=== PATIENT | female | born 1955 | race Caucasian/White ===

== ENCOUNTER 2021-03-19 08:29 | Inpatient (IN) | payer MEDICARE, OTHER ==
[2021-03-19 09:26] LABS: #Basophils 0.1 10x3/uL (0.0-0.2); #Eosinphils 0.3 10x3/uL (0.0-0.5); #Monocytes 0.6 10x3/uL (0.0-1.1); #Neutrophils 4.9 10x3/uL (1.5-8.4); %Basophils 1.6 % (0.0-2.0); %Eosinophils 3.7 % (0.0-6.0); %Lymphocytes 11.9 % (18.0-47.0); %Monocytes 8.9 % (0.0-10.0); %Neutrophils 73.2 % (40.0-75.0); Hemoglobin 7.4 g/dL (12.0-15.5); Mean Corpuscular HGB CONC 27.9 g/dL (32.0-36.0); Mean Corpuscular Volume 68.1 fl (81.6-98.3); Mean Platelet Volume 8.5 fl (7.4-10.4); Platelet Count 383 10x3/uL (150-450); RBC Distribution Width 17.1 % (11.5-14.5); Red Blood Cell (RBC) Count 3.89 10x6/uL (3.90-5.03); White Blood Cell (WBC) Count 6.7 10x3/uL (3.5-10.5)
[2021-03-19 09:35] LABS: ALT (SGPT) 14 U/L (8-55); AST (SGOT) 10 U/L (5-34); Albumin 3.7 g/dL (3.4-4.8); Alkaline Phosphatase 69 U/L (40-110); Anion Gap 12 mmol/L (10-20); BUN (Urea Nitrogen) 17 mg/dL (9.8-20.1); Bilirubin, Total 0.6 mg/dL (0.2-1.2); Calc. Creatinine Clearance 0 mL/min (70-130); Calcium 8.5 mg/dL (7.8-10.44); Carbon Dioxide 24 mmol/L (23-31); Chloride 103 mmol/L (98-107); Globulin 2.7 g/dL (2.4-3.5); Glucose 155 mg/dL (80-115); Iron 13 ug/dL (50-170); Iron Binding Capacity, Total 383 mcg/dL (265-497); Potassium 3.4 mmol/L (3.5-5.1); Protein, Total 6.4 g/dL (5.8-8.1); Sodium 136 mmol/L (136-145)
[2021-03-19 09:59] LABS: Elliptocytes SLIGHT = 2-5 cells (100X) (0-1/hpf); Hypochromia SLIGHT = 6-15 cells (100X) (0-5/hpf); Microcytosis SLIGHT = 6-15 cells (100X) (0-5/hpf)
[2021-03-19 10:01] LABS: Tear Drops SLIGHT = 2-5 cells (100X) (0-1/hpf)
[2021-03-19] MEDS ORDERED: Pantoprazole 40 MG VIAL ONE (10:15)
[2021-03-19] MEDS ORDERED: Dextrose 5% in Water 1,000 ML IV PRN (10:31)
[2021-03-19] MEDS ORDERED: HumaLOG 300 UNITS/3 ML VIAL SC PRN ×2 (10:31)
[2021-03-19] MEDS ORDERED: Acetaminophen 325 MG TAB PO PRN (10:31)
[2021-03-19] MEDS ORDERED: Dextrose 50% Abboject 50 ML SYRINGE SLOW IVP PRN (10:31)
[2021-03-19] MEDS ORDERED: Acetaminophen 650 MG Suppository PR PRN (10:31)
[2021-03-19 13:43] VITALS: BMI 31.5
[2021-03-19] MEDS ORDERED: GoLYTELY 4,000 ml Bottle PO SCH (16:00)
[2021-03-19] MEDS ORDERED: Pantoprazole 80 MG, Admixture Fee 1 EACH in Sodium Chloride 0.9% 100 ML IVPB SCH (16:00)
[2021-03-19 18:18] LABS: Hemoglobin 8.2 g/dL (12.0-15.5)
[2021-03-19] MEDS ORDERED: Ondansetron PF 4 MG/2 ML Vial IVP PRN (20:00)
[2021-03-19] MEDS: hydrOXYzine 25 MG TAB PO SCH (20:16)
[2021-03-19] MEDS: Pantoprazole 40 MG VIAL IVP SCH (20:16)
[2021-03-19] MEDS: busPIRone HCl 15 MG TAB PO SCH (20:16)
[2021-03-20 04:50] LABS: #Basophils 0.1 10x3/uL (0.0-0.2); #Eosinphils 0.3 10x3/uL (0.0-0.5); #Monocytes 0.7 10x3/uL (0.0-1.1); #Neutrophils 4.2 10x3/uL (1.5-8.4); %Basophils 1.4 % (0.0-2.0); %Eosinophils 3.9 % (0.0-6.0); %Lymphocytes 20.3 % (18.0-47.0); %Monocytes 10.1 % (0.0-10.0); %Neutrophils 63.7 % (40.0-75.0); Hemoglobin 8.2 g/dL (12.0-15.5); Mean Corpuscular HGB CONC 28.4 g/dL (32.0-36.0); Mean Corpuscular Hemoglobin 20.1 pg (27.0-33.0); Mean Platelet Volume 8.3 fl (7.4-10.4); Platelet Count 358 10x3/uL (150-450); RBC Distribution Width 17.6 % (11.5-14.5); Red Blood Cell (RBC) Count 4.07 10x6/uL (3.90-5.03); White Blood Cell (WBC) Count 6.7 10x3/uL (3.5-10.5)
[2021-03-20 04:53] LABS: Anion Gap 13 mmol/L (10-20); BUN (Urea Nitrogen) 11 mg/dL (9.8-20.1); Calc. Creatinine Clearance 103 mL/min (70-130); Calcium 8.3 mg/dL (7.8-10.44); Carbon Dioxide 24 mmol/L (23-31); Chloride 106 mmol/L (98-107); Glucose 106 mg/dL (80-115); Potassium 3.3 mmol/L (3.5-5.1); Sodium 140 mmol/L (136-145)
[2021-03-20 05:07] LABS: Hypochromia SLIGHT = 6-15 cells (100X) (0-5/hpf)
[2021-03-20 05:08] LABS: Anisocytosis SLIGHT = 6-15 cells (100X) (0-5/hpf); Platelet Morphology Comment Appears Adequate
[2021-03-20 07:04] LABS: SARS-CoV-2 NAA Rapid Test Not Detected (NotDetected)
[2021-03-20] MEDS ORDERED: PROPOFOL 20 ML ONE ×3 (07:25→07:55)
[2021-03-20] MEDS ORDERED: Lidocaine 2% MPF 10 ML AMP (For Epidural Use) ONE (07:26)
[2021-03-20] MEDS ORDERED: PHENYLEPHRINE-NS 100 MCG/ML 10 ML SYRINGE ONE (08:11)
[2021-03-20] MEDS ORDERED: Atorvastatin Calcium 20 MG TAB PO SCH (09:00)
[2021-03-20] MEDS ORDERED: Hydrochlorothiazide 25 MG TAB PO SCH (09:00)
[2021-03-20] MEDS ORDERED: DULoxetine 30 MG CAP PO SCH (09:00)
[2021-03-20] MEDS ORDERED: Aripiprazole 10 MG TAB PO SCH (09:00)
[2021-03-20] MEDS ORDERED: Lisinopril 10 MG TAB PO SCH (09:00)
[2021-03-20] MEDS: Pantoprazole 40 MG VIAL IVP SCH (09:24)
[2021-03-20] MEDS: busPIRone HCl 15 MG TAB PO SCH (09:25)
[2021-03-20] MEDS: hydrOXYzine 25 MG TAB PO SCH (09:25)
[2021-03-20 13:30] LABS: SARS-CoV-2 PCR by NAA Not Detected (NotDetected)
[2021-03-20] MEDS ORDERED: Potassium Chloride 20 MEQ TAB PO SCH (15:00)
[2021-03-20 16:40] VITALS: BP 130/58; TEMP 98.4
== END 2021-03-20 17:53 | disposition home or self-care (01) | DRG 376 ==
LOC: CSHERS 08:29 → CSHTELE 11:31
PROVIDERS: ADMIT Internal Medicine; ATTEND Physician Assistant
PROC: 30233N1 Transfusion of Nonautologous Red Blood Cells into Peripheral Vein, Percutaneous Approach (ICD-10-PCS; principal; 2021-03-19)
PROC: 0DB98ZX Excision of Duodenum, Via Natural or Artificial Opening Endoscopic, Diagnostic (ICD-10-PCS; 2021-03-20)
PROC: 0DBM8ZX Excision of Descending Colon, Via Natural or Artificial Opening Endoscopic, Diagnostic (ICD-10-PCS; 2021-03-20)
PROC: 0DBL8ZX Excision of Transverse Colon, Via Natural or Artificial Opening Endoscopic, Diagnostic (ICD-10-PCS; 2021-03-20)
DX: C18.9 Malignant neoplasm of colon, unspecified (principal); Z20.822 Contact with and (suspected) exposure to COVID-19; D50.9 Iron deficiency anemia, unspecified; E11.9 Type 2 diabetes mellitus without complications; I10 Essential (primary) hypertension; E78.5 Hyperlipidemia, unspecified; J44.9 Chronic obstructive pulmonary disease, unspecified; F41.9 Anxiety disorder, unspecified; M19.90 Unspecified osteoarthritis, unspecified site; K57.30 Diverticulosis of large intestine without perforation or abscess without bleeding; Z96.641 Presence of right artificial hip joint; R91.1 Solitary pulmonary nodule; F32.A Depression, unspecified; Z88.2 Allergy status to sulfonamides; Z88.7 Allergy status to serum and vaccine; Z79.84 Long term (current) use of oral hypoglycemic drugs; Z79.899 Other long term (current) drug therapy; Z98.51 Tubal ligation status; Z90.710 Acquired absence of both cervix and uterus
CPT/HCPCS: 36415; 36416; 36430; 71260; 74177; 80048; 80053; 82274; 82728; 83540; 83550; 85025; 86850; 86900; 86901; 88305; C9113; J2405; J2704; P9016; U0002; U0003; U0005

== ENCOUNTER 2021-10-30 13:06 | Outpatient (CLI) | payer MEDICARE, OTHER ==
[~2021-10-30 13:06] MED LIST: Iopamidol 300 61% 100 ML VIAL FS ONE
== END 2021-10-30 13:07 | disposition home or self-care (01) ==
LOC: CSHCT 13:06
PROVIDERS: ATTEND Internal Medicine Hematology & Oncology
DX: C18.3 Malignant neoplasm of hepatic flexure (principal); M51.04 Intervertebral disc disorders with myelopathy, thoracic region; M25.78 Osteophyte, vertebrae; K76.89 Other specified diseases of liver; E27.9 Disorder of adrenal gland, unspecified
CPT/HCPCS: 71260; 74177; Q9967

== ENCOUNTER 2022-04-05 09:16 | Outpatient (CLI) | payer MEDICARE ==
[2022-04-05] MEDS ORDERED: Iopamidol 300 61% 100 ML VIAL FS ONE (11:33)
== END 2022-04-05 09:17 | disposition home or self-care (01) ==
LOC: CSHCT 09:16
PROVIDERS: ATTEND Internal Medicine Hematology & Oncology
DX: C18.9 Malignant neoplasm of colon, unspecified (principal); C18.3 Malignant neoplasm of hepatic flexure; D50.0 Iron deficiency anemia secondary to blood loss (chronic); K76.89 Other specified diseases of liver; E27.8 Other specified disorders of adrenal gland; Z90.49 Acquired absence of other specified parts of digestive tract; K57.30 Diverticulosis of large intestine without perforation or abscess without bleeding; Z90.710 Acquired absence of both cervix and uterus; N32.89 Other specified disorders of bladder
CPT/HCPCS: 71260; 74177; 82565